=== PATIENT | female | born 1945 | race Caucasian/White ===

== ENCOUNTER → 2017-04-17 | Outpatient (CLI) | payer BC ==
[~2017-04-17] MED LIST: CPR500 PO
--- NOTE | 2017-04-17 15:48 | MAMMOGRAPHY REPORT ---
BILATERAL DIGITAL SCREENING MAMMOGRAM TOMOSYNTHESIS WITH CAD: 04/17/2017 CLINICAL HISTORY: Asymptomatic. Personal history of breast cancer. TECHNIQUE: Breast tomosynthesis in addition to standard 2D mammography was performed. Current study was also evaluated with a Computer Aided Detection (CAD) system. COMPARISON: Comparison is made to exams dated: 04/21/2016 mammogram, 04/18/2015 mammogram, 04/17/2014 m ammogram, 04/06/2013 mammogram, 04/05/2012 mammogram, and 01/21/2011 mammogram - [facility] enter. BREAST COMPOSITION: The tissue of both breasts is almost entirely fatty. FINDINGS: No suspicious masses, calcifications, or areas of architectural distortion are noted in ei ther breast. There has been no significant interval change compared to prior exams. There are stable postsurgical changes in the left breast from prior lumpectomy. Focal asymmetry in the right upper o uter quadrant is stable. IMPRESSION: ACR BI-RADS CATEGORY 2: BENIGN There is no mammographic evidence of malignancy. A 1 year screening mammogram is recommended. The pa tient will receive written notification of the results. Approximately 10% of breast cancers are not detected with mammography. A negative mammographic report should not delay biopsy if a clinically suggestive mass is present. Radha Askew M.D. ah/:04/17/2017 14:52:35 Immunology Specialist: Charlee LANG(Emmett)(M), [facility] letter sent: Normal 1/2 BI-RADS Code: ACR BI-RADS Category 2: Benign
== END | disposition home or self-care (01) ==
LOC: C.MAMM 11:50
PROVIDERS: ATTEND Internal Medicine
DX: Z12.31 Encounter for screening mammogram for malignant neoplasm of breast (principal); Z85.3 Personal history of malignant neoplasm of breast

== ENCOUNTER → 2017-09-03 | Outpatient (CLI) | payer BC ==
--- NOTE | 2017-09-03 16:57 | DIAGNOSTIC IMAGING REPORT ---
RIGHT KNEE 4 VIEWS; LEFT KNEE 4 VIEWS CLINICAL HISTORY: Chronic bilateral knee pain. FINDINGS: An AP standing view of both knees, a tunnel view of both knees, a sunrise view of both knees, with lateral views of the right and left knee are compared to study dated 06/17/2010. The skeletal structures are osteopenic. No fracture is seen. Right knee: There is advanced narrowing at the patellofemoral articulation. Mild narrowing is seen in the medial and lateral compartments. No osteochondral defect is identified on the tunnel view. There are marginal osteophytes as well as patellar enthesophytes. No joint effusion is identified. The overlying soft tissues are within normal limits. Atherosclerotic calcification is noted in the popliteal artery. Left knee: There is advanced narrowing in the medial and patellofemoral compartments. Bony sclerosis is noted in the medial compartment. Only mild narrowing is seen in the lateral compartment. No osteochondral defect is identified on the tunnel view. There are marginal osteophytes as well as patellar enthesophytes. No joint effusion is identified. The overlying soft tissues are within normal limits. Atherosclerotic calcification is noted in the pelvis artery. IMPRESSION: 1. No acute bony abnormality is seen in either knee. 2. Osteopenia and arthritic change as above. This has progressed from the 2009 examination. Electronically signed by: Len Reece M.D. 09/03/2017 4:56 PM Dictated Date/Time: 09/03/2017 4:53 PM
== END | disposition home or self-care (01) ==
LOC: C.RDSM 08:00
PROVIDERS: ATTEND Physician Assistant
DX: R52 Pain, unspecified (principal); M85.89 Other specified disorders of bone density and structure, multiple sites; M17.0 Bilateral primary osteoarthritis of knee

== ENCOUNTER 2019-04-05 06:25 | Inpatient (IN) ==
--- NOTE | 2019-03-21 12:29 | PAT Medication Instructions ---
Medication Instructions Date of Service March 21, 2019 Home Medications aspirin 81 mg PO QAM atorvastatin [Lipitor] 5 mg PO QAM calcium carbonate-vitamin D3 [Calcium 500 + D] 1 tab PO QAM multivitamin 1 cap PO QAM DO NOT take the morning of surgery aspirin 81 mg PO QAM calcium carbonate-vitamin D3 [Calcium 500 + D] 1 tab PO QAM multivitamin 1 cap PO QAM Take morning of surgery With a small sip of water, OTHERWISE NOTHING TO EAT OR DRINK AFTER MIDNIGHT: atorvastatin [Lipitor] 5 mg PO QAM Other Notes If you have any questions please call us at [phone] or [phone] or [phone] or [phone]
--- NOTE | 2019-03-21 13:26 | Anesthesiology Consultation ---
Date of Service March 21, 2019 Assessment & Plan (1) Encounter for pre-operative examination: - No previous anesthesia records re: intubations. Chart Review Chart Review: Acceptable Risk for Surgery and Patient seen in Pre Admission Testing Consults Requested none Teaching & Discussion Pre-Anesthesia Teaching/Discussion Notes: Instructed NPO after midnight before surgery, except medications with 15 cc of water. Medication instructions provided according to the PAT guidelines. History Surgery Operation Date: 04/05/19 08:50 Proposed Procedures p Left Total Knee Arthroplasty - Sai Poe MD Height/Weight Height: 4 ft 11.5 in Weight: 71.9 kg Allergies Allergy/AdvReac Type Severity Reaction Status Date / Time No Known Allergies Allergy Unknown Verified 03/14/19 08:06 Medications Home Medications Medication Instructions Recorded Confirmed Last Taken aspirin 81 mg PO QAM 03/14/19 03/14/19 Unknown atorvastatin [Lipitor] 5 mg PO QAM 03/14/19 03/14/19 Unknown calcium carbonate-vitamin D3 1 tab PO QAM 03/14/19 03/14/19 Unknown [Calcium 500 + D] multivitamin 1 cap PO QAM 03/14/19 03/14/19 Unknown Past Medical History Medical History Breast cancer (Chronic) LEFT - LUMPECTOMY AND SENTINEL NODE BX Hyperlipidemia BORDERLINE Osteoarthritis Exercise / Class Metabolic Activity II 4-5 Yardwork/Stairs/Walk up hill (Tries to do 30+ minutes of activity per day (walking, stationary bike, sunshine, strength training, etc). Able to climb FOS. Denies CP or SOB. ) Past Surgical History Surgical History S/P tubal ligation (Chronic) History of partial mastectomy of left breast (Chronic) "1999, with L axillary sentinal lymph node biopsy" H/O sigmoidoscopy (Chronic) "200- 6 mm tubular adenoma" H/O colonoscopy (Chronic) "2002- 2 hyperplastic polyps 2009-diverticulosis 2014- diverticulosis" History of cataract surgery (Chronic) RIGHT AND LEFT History of carpal tunnel release RIGHT AND LEFT History of open reduction and internal fixation (ORIF) procedure RIGHT WRIST Hx of arthroscopic knee surgery RIGHT AND LEFT Past Anesthesia History No Hx of Anesthesia Complications and No Family Hx of Anesthesia Complications History of PONV No Hx of PONV and No Hx of Motion Sickness Social History Smoking Status: Never smoker Do You Dip or Chew Tobacco: No Hx Alcohol Use: No Hx Substance Use: No substance use type: does not use Review of Systems Patient denies chest pain, shortness of breath, dyspnea on exertion, reflux, cough, wheezing, palpitations. +Joint Pain (Knees) Physical Exam Vital Signs BP: 107/74 P: 69 R: 14 T: 98.2 SPO2: 96% on RA ENMT Thyromental Distance: > or= 3.5 Finger Breadths (3.5) Mallampati Class: II Neck normal visual inspection; neck extension not limited Respiratory normal respiratory effort Auscultation: lungs clear to auscultation bilaterally Cardiovascular Rate/Rhythm: regular rate and regular rhythm Heart Sounds: no murmur Vessels: no carotid bruit Neurologic moves all extremities Psychiatric Orientation: alert and oriented x 3 Testing Laboratory Results 03/21/19 13:35 03/21/19 13:35 PT 9.8 Seconds (9.0-12.0) 03/21/19 13:35 INR 1.0 (0.9-1.1) 03/21/19 13:35 APTT 24.5 Seconds (21.0-31.0) 03/21/19 13:35 Blood Type A Positive 03/21/19 13:35 Antibody Screen NEGATIVE 03/21/19 13:35 Electrocardiogram Date: 12/13/18 Findings: + NSR @ (72) Sinus Arrhythmia Chest X-Ray Date: 03/21/19 Findings: + NAD FINDINGS: Low lung volumes. No focal lung consolidations to suggest pneumonia. No evidence for pulmonary edema. Prominence of the cardiac silhouette may be accentuated by the low lung volumes. Old compression deformity at T12. No pleural effusions. No pneumothorax.
--- NOTE | 2019-03-21 14:02 | XRay Report ---
XR chest Pre-admission PA/Lat HISTORY: Preop. COMPARISON: Chest 03/27/2016. FINDINGS: Low lung volumes. No focal lung consolidations to suggest pneumonia. No evidence for pulmon fabio edema. Prominence of the cardiac silhouette may be accentuated by the low lung volumes. Old compr ession deformity at T12. No pleural effusions. No pneumothorax. IMPRESSION: No acute process. Electronically signed by: Kyree Patel M.D. 03/21/2019 2:00 PM
[2019-03-21 15:24] LABS: Basophils # (auto) 0.03 K/uL (0-0.2); Basophils % (auto) 0.6 %; Eosinophils # (auto) 0.14 K/uL (0-0.5); Eosinophils % (auto) 2.9 %; Hematocrit (blood only) 40.1 % (37-47); Hemoglobin 13.5 g/dL (12.0-16.0); Lymphocytes # (auto) 1.17 K/uL (1.2-3.4); Mean Corpuscular Hemoglobin 30.3 pg (25-34); Mean Corpuscular Hgb Conc 33.7 g/dL (32-36); Mean Corpuscular Volume 90.1 fL (80-100); Mean Platelet Volume 10.2 fL (7.4-10.4); Monocytes # (auto) 0.46 K/uL (0.11-0.59); Monocytes % (auto) 9.4 %; Neutrophils # (auto) 3.08 K/uL (1.4-6.5); Neutrophils % (auto) 63.1 %; Platelet Count 264 K/uL (130-400); RDW Coefficient of Variation 14.5 % (11.5-14.5); RDW Standard Deviation 47.5 fL (36.4-46.3); Red Blood Count 4.45 M/uL (4.2-5.4); White Blood Count 4.88 K/uL (4.8-10.8)
[2019-03-21 15:35] LABS: Partial Thromboplastin Ratio 0.9; Partial Thromboplastin Time 24.5 Seconds (21.0-31.0); Prothrombin Time 9.8 Seconds (9.0-12.0)
[2019-03-21 15:41] LABS: BUN Creatinine Ratio 19.2 (10-20); Creatinine Clr Calc Pharmacy 76.6 ml/min; Est GFR (African American) 106.7; Est GFR (Non-African American) 92.1; Potassium 4.3 mmol/L (3.5-5.1)
--- NOTE | 2019-03-31 17:54 | History and Physical Report ---
DATE OF ADMISSION: 04/05/2019 CHIEF COMPLAINT: Left knee pain and discomfort. HISTORY OF PRESENT ILLNESS: A 74-year-old female who presents for surgical treatment of her left knee. She has a several year history of increasing left knee pain and discomfort that has gotten worse over time. No history of injury. The more she walks, the more it hurts. She has difficulty going up and down stairs. She like to dance, but cannot do so due to her knee pain. She describes global pain. She had viscosupplementation, which did not help at all. She has had steroid shots which have helped only temporarily. She elected to proceed with surgical treatment. Of note, she did have her knee scoped by Dr. Fonseca 30 years ago. PAST MEDICAL HISTORY: Breast cancer. PAST SURGICAL HISTORY: 1. Carpal tunnel release. 2. Lumpectomy. 3. Left knee arthroscopy done by Dr. Fonseca 30+ years ago. ALLERGIES: None. CURRENT MEDICATIONS: 1. Lipitor. 2. Multivitamin. 3. Calcium with vitamin D. SOCIAL HISTORY: A 74-year-old female. She is . Quite active. Does not drink. Does not smoke. FAMILY HISTORY: Significant for heart disease, diabetes, uterine cancer and melanoma. REVIEW OF HISTORY: Negative for diabetes, neurologic problems, vascular problems or bleeding disorders. No chest pain or shortness of breath. No signs of DVT or PE. No known bleeding problems. PHYSICAL EXAMINATION: GENERAL: Reveals a healthy, pleasant middle-aged female. Looks to be in pretty good health. HEENT: Benign. NECK: Supple, no lymphadenopathy. LUNGS: Clear to auscultation. HEART: Regular rate and rhythm. ABDOMEN: Soft, nontender, nondistended. EXTREMITIES: Grossly neurovascularly intact except as follows: Examination of the left knee reveals patient walks with a varus alignment to her knee. She does have a little bit of varus thrust with weightbearing. She has bony hypertrophy medially. She is tender over the medial joint line. Range of motion is 5-120. No instability. No pain with hip motion. X-RAYS: Left knee reviewed. Shows advanced left knee medial compartment DJD. She has complete loss of her medial joint space on the 45-degree flexion films. She had osteophytes in all 3 compartments. ASSESSMENT: A 74-year-old female with a history of a remote knee arthroscopy 30+ years ago with a left knee degenerative joint disease. She would like to proceed with definitive treatment/knee replacement. PLAN: We are going to proceed with left knee replacement. The risks and benefits of this procedure were explained to the patient including but not limited to DVT, PE, , infection, neurological injury, vascular injury, bleeding problem, pain, limited range of motion, stiffness, failure to relieve symptoms, incomplete relief of symptoms, need for further surgery in future, persistent pain, etc. The patient understands and desires to proceed. Informed consent was obtained. As far as discharge plans, she is planning to be discharged home using [facility] home health program.
[~2019-04-05 06:25] MED LIST changes: +ACETAMINOPHEN 500 MG TAB PO SCH; +BUPIVACAINE LIPOSOME/PF 266 MG, BUPIVACAINE/EPINEPHRINE 50 ML, SODIUM CHLORIDE 0.9% 30 ... INFIL SCH; +CEFAZOLIN 2000MG 2,000 MG/15 ML SYR IV SCH; -CPR500 PO; +FAMOTIDINE 20 MG TAB PO SCH; +GABAPENTIN 300 MG CAP PO SCH; +LR 500ML BOLUS, THEN 15ML/HR IV SCH; +LR 60ML/HR IV SCH; +METOCLOPRAMIDE HCL 10 MG TABLET PO SCH
[2019-04-05] MEDS ORDERED: TRANEXAMIC ACID 1,000 MG **IV Intra-op IV SCH (06:30)
[2019-04-05] MEDS ORDERED: BUPIVACAINE/EPINEPHRINE 0.25% 1:200,000 30 ML VIAL ONE (06:36)
[2019-04-05] MEDS ORDERED: BUPIVACAINE 0.5 % 5 MG/1 ML PF 10ML VIAL ONE (06:36)
[2019-04-05] MEDS ORDERED: DEXAMETHASONE SOD INJ 4 MG/ML VIAL ONE (06:36)
--- NOTE | 2019-04-05 06:49 | History & Physical Bridge Note ---
Date of Service April 05, 2019 History & Physical Bridge Note I have examined the patient, reviewed the History & Physical and in the interval since the performance of the History & Physical I have noted the following changes of clinical significance: no changes noted
[2019-04-05] MEDS ORDERED: PROPOFOL IV EMULSION 10 MG/ML 20 ML VIAL IV ONE (07:59)
[2019-04-05] MEDS ORDERED: MIDAZOLAM HCL 1 MG/ML 2ML VIAL ONE (07:59)
[2019-04-05] MEDS ORDERED: fentaNYL citrate 100 MCG/2 ML VIAL ONE (07:59)
[2019-04-05] MEDS ORDERED: BACITRACIN INJ 50,000 UNIT VIAL ONE (09:11)
[2019-04-05] MEDS ORDERED: SODIUM CHLORIDE 0.9% PF 50 ML VIAL ONE (09:11)
[2019-04-05] MEDS ORDERED: BUPIVACAINE LIPOSOME 1.3% 266 MG/20 ML VIAL ONE (09:11)
[2019-04-05] MEDS ORDERED: EPINEPHrine INJ 1 MG/ML AMP ONE (09:12)
[2019-04-05] MEDS ORDERED: BUPIVACAINE 0.25% 30 ML VIAL ONE (09:12)
--- NOTE | 2019-04-05 11:08 | Post Operative Brief Note ---
PG Immediate Post Op with CF Date of Surgery April 05, 2019 Pre & Post Diagnosis Operation Date: 04/05/19 08:50 Pre-Op Diagnosis: Left Knee Advanced Degenerative Joint Disease Post-Op Diagnosis: Left Knee Advanced Degenerative Joint Disease Procedure Operation Date: 04/05/19 08:50 Actual Procedures p Left Total Knee Arthroplasty(Left) - Sai Poe MD Surgeon Sai Poe MD Dry Clipper Tender Rosy, PAC Estimated Blood Loss 50 Findings Consistent with Post-Op Diagnosis Fluids 1000 cc Specimens Specimen Description: A. Left Knee Bone and Tissue Drains Bullard Catheter (A 16 Kazakh bullard catheter was inserted by MEGHNA Spears, without difficulty, clear yellow urine obtained, output to be monitored by Anesthesia.) Anesthesia Type Spinal MAC Complications none Disposition Accompanied Patient To Recovery: No Disposition: Recovery Room
--- NOTE | 2019-04-05 11:30 | Anesthesiology Progress Note ---
Date of Service April 05, 2019 Anesthesia Post Procedure Vital Signs Vital Signs: Temp Pulse Pulse Resp BP BP Pulse Ox 04/05/19 11:20 89 19 109/64 95 04/05/19 11:14 36.7 C 87 17 114/75 100 04/05/19 07:02 36.8 C 81 20 146/85 H 96 Pain Intensity Left Knee: Pain Intensity: 0 Transfer of Care Handoff Completed per policy Notes Mental Status: alert / awake / arousable Patient Amnestic to Procedure: Yes Nausea / Vomiting: adequately controlled Pain: adequately controlled Airway Patency, RR, SpO2: stable & adequate BP & HR: stable & adequate Hydration State: stable & adequate Neuraxial Anesthesia: was administered and sensory block is resolving Anesthetic Complications: no major complications apparent
--- NOTE | 2019-04-05 11:44 | XRay Report ---
XR knee LT 2V routine CLINICAL HISTORY: 74 years-old Female presenting with Surgical Post Op. TECHNIQUE: Frontal and crosstable lateral views of the left knee were obtained. COMPARISON: 02/24/2019. FINDINGS: There has been interval total left knee arthroplasty with patellar resurfacing. Expected intra-articu lar and soft tissue emphysema. No malalignment. No periprosthetic fracture or lucency. Overlying skin asim noted. IMPRESSION: Expected postsurgical appearance status post total left knee arthroplasty with patellar resurfacing. Electronically signed by: Jose Manuel Macdonald M.D. 04/05/2019 11:43 AM
[2019-04-05] MEDS ORDERED: MAGNESIUM HYDROXIDE SUSP 30 ML UDC PO PRN (11:58)
[2019-04-05] MEDS ORDERED: ALUMINUM/MAGNESIUM SUSP 30 ML UDC PO PRN (11:58)
[2019-04-05] MEDS ORDERED: METOCLOPRAMIDE HCL INJ 5 MG/ML 2 ML VIAL IV PRN (11:58)
[2019-04-05] MEDS ORDERED: HYDROmorphone INJ 0.5 MG/0.5 ML SYR IV PRN (11:58)
[2019-04-05] MEDS ORDERED: ONDANSETRON INJ 2 MG/ML 2 ML VIAL IV PRN (11:58)
[2019-04-05] MEDS ORDERED: NALOXONE HCL 0.4 MG/1 ML VIAL/CARP IV PRN (11:58)
[2019-04-05] MEDS ORDERED: BISACODYL 10 MG SUPP PR PRN (11:58)
[2019-04-05] MEDS ORDERED: SODIUM CHLORIDE 0.9% 1000ML 1,000 ML IV SCH (12:45)
[2019-04-05] MEDS: KETOROLAC TROMETHAMINE 15 MG/ML VIAL IV SCH ×3 (13:35→23:12)
--- NOTE | 2019-04-05 13:48 | Progress Note ---
DATE: 04/05/2019 SUBJECTIVE: A 74-year-old white female postop from a left knee replacement. She is doing well. Not having any pain yet. No chest pain or shortness of breath. Not feeling dizzy or lightheaded. OBJECTIVE: VITAL SIGNS: Temperature 36.8. Vital signs stable. GENERAL: Shows a pleasant, middle-aged female. She is sitting up in bed and looks comfortable. LUNGS: Clear to auscultation. HEART: Regular rate and rhythm. ABDOMEN: Soft, nontender, nondistended. EXTREMITIES: Grossly neurovascularly intact except as follows: Examination of the left lower extremity reveals the leg to be well aligned. Dressing is clean, dry and intact. She can dorsiflex and plantarflex her foot appropriately. She is neurologically intact. X-RAYS: X-rays of the left knee were reviewed from the recovery room. It shows a left cemented posterior stabilized total knee arthroplasty. It is a somewhat rotated film. No signs of any problems. ASSESSMENT: A 74-year-old white female postoperative from a left knee replacement, doing well. Pain is controlled. She is neurologically intact. PLAN: 1. DVT prophylaxis including thigh-high TEDs, SCDs, and aspirin twice a day. 2. PT/OT. Weight bear as tolerated. Left total knee protocol. 3. Pain control, doing well with current pain regimen. 4. IV antibiotics x24 hours. 5. Disposition: She is planning to be discharged to home with some home health once adequately recovered and medically stable.
[2019-04-05] MEDS: TRAMADOL HCL 50 MG TABLET PO PRN (14:42)
[2019-04-05] MEDS: ACETAMINOPHEN 500 MG TAB PO SCH ×2 (15:14→23:11)
--- NOTE | 2019-04-05 16:20 | Operative Report ---
DATE OF OPERATION: 04/05/2019 SURGEON: Sai Poe MD. WARD HELPER: MEGHNA Norton. PREOPERATIVE DIAGNOSIS: Left knee degenerative joint disease. POSTOPERATIVE DIAGNOSIS: Left knee degenerative joint disease. PROCEDURE PERFORMED: Left cemented posterior stabilized total knee arthroplasty. COMPLICATIONS: None. ESTIMATED BLOOD LOSS: 50 mL. FLUID REPLACEMENT: 1000 mL crystalloid fluid replacement. ANESTHESIA: Spinal with adductor canal block. DRAINS: None. SPECIMENS: Left knee sent for pathology. TOURNIQUET TIME: 52 minutes at 300 mmHg. OPERATIVE INDICATIONS: The patient is a 74-year-old female who has a long history of left knee pain and discomfort. She had a left knee scope done by Dr. Fonseca over 30 years ago. Over the past several years, she has developed increased pain, discomfort and inability to do certain activities due to her knee pain and discomfort. She has been through extensive conservative treatment, which provided only temporary relief. She elected for total knee arthroplasty. OPERATIVE FINDINGS: Operative findings revealed advanced left knee DJD. She had grade 4 [id number] disease of the medial femoral condyle and medial tibial plateau as well as the patellofemoral joint. She had a varus deformity to her knee. Moderate-sized knee effusion. OPERATIVE IMPLANTS: Operative implants consisted of, 1. Biomet Vanguard size 62.5 left posterior stabilized femoral component. 2. Biomet size 63 tibial tray. 3. A 10 mm posterior stabilized polyethylene insert. 4. A 28 x 8 all poly patella. OPERATIVE PROCEDURE: The patient was taken to the Operating Room, identified and placed on the operating table in supine position. All contact areas were appropriately padded. IV antibiotics were provided by Anesthesia team. Spinal anesthetic and adductor canal block had been provided in the holding area. Pozo catheter was placed in sterile fashion. A left thigh tourniquet was then placed and left lower extremity was then prepped and draped in usual sterile fashion. Left leg was elevated and exsanguinated with an Esmarch and tourniquet was placed at 300 mmHg. An anterior approach to the left knee was then performed through a longitudinal incision centered over the patella. Sharp dissection was carried through subcutaneous tissues down to the level of the extensor mechanism. Medial parapatellar arthrotomy incision was made. Some subperiosteal dissection was carried out medially. The fat pad resected from beneath the patellar tendon. The lateral patellofemoral ligament was released. The patella was everted and knee was flexed. The osteophytes were taken off the distal femur. The ACL and PCL were then released from the distal femur and the tibia subluxated anteriorly. External tibial alignment jig was then placed in the anterior face of the tibia and adjusted 14 mm medially. Proximal tibial cut was made to remove about a millimeter of bone from the most deficient aspect of the medial tibial plateau. Some osteophytes were taken off medial and posteromedially. Tibia was sized to a size 63. Attention was then drawn to the femur. The distal femur was entered with a sharp drill bit. Intramedullary canal was suctioned. A left 5 degree valgus cutting guide was then placed. Distal femoral cutting block was pinned in place. Distal femoral cut was made to take an additional 3 mm of bone off the distal femur. Femur was then sized to a size 62.5. We did downsize this slightly. The AP cutting block was pinned parallel to the epicondylar axis, which was 5 degrees of external rotation. The anterior cut, anterior chamfer cut, posterior cut, posterior chamfer cuts were made. Box cutting guide was placed and adjusted slightly lateral and the box cut was made. The knee was flexed. The remnants of the medial and lateral menisci were excised. The osteophytes were taken off posterior aspect of the femur. A trial femoral component was placed. Tibial tray was pinned in maximum external rotation and the drill and stem punch were used to create defect in proximal tibia for the tibial tray. The knee was then trialed and the 10 mm insert fit most appropriately. Attention was then drawn to the patella. The patella was cleaned of all soft tissues. Patella thickness measured 21 mm in thickness, it was cut down to 13. It was sized to a size 28 patella. Lug holes were drilled for a 28 patella. Lateral osteophyte was removed. Patella button was placed. Knee was taken through range of motion. Patella tracked nicely with no thumbs test. Attention was then drawn toward placing the permanent components. All trial components were removed. Bone plug was placed in the distal femur to limit blood loss. A double batch of Palacos G cement was mixed. A Biomet Vanguard size 62.5 left posterior stabilized femoral component, size 63 tibial tray, a 10 mm posterior stabilized polyethylene insert, a 28 x 8 all poly patella then cemented in place. Knee was brought in full extension until cement hardened. A final cement check was then performed. Pericapsular tissues were injected with a total of 100 mL of a combination with 20 mL of Exparel, 30 mL of normal saline, 50 mL of 0.25% Marcaine with epinephrine. The patient did receive 1 g of tranexamic acid. The tourniquet was then let down for a tourniquet time of 52 minutes. Hemostasis was assured with use of electrocautery. The wound was once again irrigated. Extensor mechanism was then closed with combination of 1 PDS suture, #1 Vicryl suture in [id number] fashion. Extensor mechanism was checked and found to be intact. The subcutaneous tissue was then closed with 2 Dexon suture in a buried interrupted fashion. Skin was closed with skin asim. Leg was then cleaned, dried and a sterile dressing of Xeroform, 4 x 4, sterile cast padding, Lester bandage were then applied. The patient then transferred to the Recovery Room in stable condition. The patient tolerated the procedure well with no complications. All needle and sponge counts were correct at the end of the operation. I attest to the content of the Intraoperative Record and any orders documented therein. Any exception s are noted below.
[2019-04-05] MEDS: ASCORBIC ACID 500 MG TAB PO SCH (17:20)
[2019-04-05] MEDS: FERROUS GLUCONATE 324 MG TAB PO SCH (17:26)
[2019-04-05] MEDS ORDERED: TRANEXAMIC ACID 1,000 MG in 0.9 % SODIUM CHLORIDE 100 ML IV ONE (18:00)
[2019-04-05] MEDS: CEFAZOLIN 1000MG 1,000 MG/7.5 ML SYR IV SCH (20:21)
[2019-04-05] MEDS: DOCUSATE SODIUM 100 MG CAP PO SCH (20:22)
[2019-04-05] MEDS: SENNA 8.6 MG TAB PO SCH (20:22)
[2019-04-05] MEDS: ASPIRIN 81 MG ECTAB PO SCH (20:22)
[2019-04-06] MEDS: CEFAZOLIN 1000MG 1,000 MG/7.5 ML SYR IV SCH (04:01)
[2019-04-06] MEDS: KETOROLAC TROMETHAMINE 15 MG/ML VIAL IV SCH ×4 (06:01→23:17)
[2019-04-06 06:37] LABS: Hematocrit (blood only) 33.7 % (37-47); Mean Corpuscular Hemoglobin 29.5 pg (25-34); Mean Corpuscular Hgb Conc 32.6 g/dL (32-36); Mean Corpuscular Volume 90.3 fL (80-100); Mean Platelet Volume 9.7 fL (7.4-10.4); Platelet Count 224 K/uL (130-400); RDW Coefficient of Variation 14.2 % (11.5-14.5); RDW Standard Deviation 46.9 fL (36.4-46.3); Red Blood Count 3.73 M/uL (4.2-5.4); White Blood Count 9.46 K/uL (4.8-10.8)
[2019-04-06 07:07] LABS: BUN Creatinine Ratio 16.2 (10-20); Calcium 7.9 mg/dl (8.5-10.1); Creatinine Clr Calc Pharmacy 76.6 ml/min; Est GFR (African American) 106.7; Est GFR (Non-African American) 92.1; Potassium 3.9 mmol/L (3.5-5.1)
[2019-04-06] MEDS: FERROUS GLUCONATE 324 MG TAB PO SCH ×2 (08:14→18:20)
[2019-04-06] MEDS: CALCIUM 600MG + VIT D 400 IU TAB PO SCH (08:14)
[2019-04-06] MEDS: ASPIRIN 81 MG ECTAB PO SCH ×2 (08:14→20:21)
[2019-04-06] MEDS: ASCORBIC ACID 500 MG TAB PO SCH ×2 (08:14→18:20)
[2019-04-06] MEDS: DOCUSATE SODIUM 100 MG CAP PO SCH ×2 (08:14→20:35)
[2019-04-06] MEDS: ACETAMINOPHEN 500 MG TAB PO SCH ×3 (08:14→23:16)
[2019-04-06] MEDS: ATORVASTATIN 10 MG TAB PO SCH (08:15)
[2019-04-06] MEDS: MULTIVITAMIN TAB PO SCH (08:15)
[2019-04-06] MEDS ORDERED: MULTIVITAMIN TAB PO SCH (09:00)
--- NOTE | 2019-04-06 11:22 | Progress Note ---
DATE: 04/06/2019 SUBJECTIVE: A 74-year-old white female postop day 1 from left knee replacement. She is doing quite well. Pain has been controlled. No chest pain or shortness of breath. Not feeling dizzy or lightheaded. OBJECTIVE: VITAL SIGNS: Temperature 37.0. Vital signs stable. GENERAL: Physical examination shows a pleasant, middle-aged female. She is sitting up in her bedside chair and looks pretty comfortable. EXTREMITIES: Examination of the left leg reveals the leg to be well aligned. She can dorsiflex and plantarflex her foot appropriately. She is neurologically intact. LABORATORY DATA: Hemoglobin is 11.0. Hematocrit 33.7. Electrolytes are stable. ASSESSMENT: A 74-year-old white female postop day 1 from left knee replacement, doing quite well. Pain is controlled. She is neurologically intact. PLAN: 1. DVT prophylaxis including thigh-high TEDs, SCDs, and aspirin twice a day. 2. PT/OT. Weight bear as tolerated. Left total knee protocol. 3. Pain control, doing well with current pain regimen. 4. Disposition: Plan to discharge to home with home health once adequately recovered and medically stable.
--- NOTE | 2019-04-06 12:15 | Anesthesiology Progress Note ---
Date of Service April 06, 2019 Anesthesia Post Procedure Vital Signs Vital Signs: Temp Pulse Pulse Pulse Resp BP Pulse Ox 04/06/19 07:00 37 C 69 18 135/82 97 04/06/19 03:28 37.0 C 70 16 128/81 97 04/05/19 23:07 36.9 C 65 16 118/76 97 04/05/19 19:00 36.6 C 82 16 123/78 93 04/05/19 15:28 36.4 C L 78 16 126/84 97 04/05/19 14:17 82 16 128/84 96 04/05/19 13:14 36.8 C 84 18 120/66 98 04/05/19 12:20 36.6 C 96 H 16 120/78 93 Pain Intensity Left Knee: Pain Intensity: 0 Notes Mental Status: alert / awake / arousable and participated in evaluation Nausea / Vomiting: adequately controlled Pain: adequately controlled Airway Patency, RR, SpO2: stable & adequate BP & HR: stable & adequate Hydration State: stable & adequate Neuraxial Anesthesia: sensory block resolved
[2019-04-06] MEDS: SENNA 8.6 MG TAB PO SCH (20:35)
[2019-04-06] MEDS: TRAMADOL HCL 50 MG TABLET PO PRN (22:17)
[2019-04-07] MEDS: KETOROLAC TROMETHAMINE 15 MG/ML VIAL IV SCH (04:52)
[2019-04-07] MEDS: TRAMADOL HCL 50 MG TABLET PO PRN (06:16)
--- NOTE | 2019-04-07 07:37 | Progress Note ---
DATE: 04/07/2019 SUBJECTIVE: A 74-year-old white female postop day 2 from a left knee replacement. Had a little bit more pain last night and a little bit more pain this morning. It is manageable. No chest pain or shortness of breath. Not feeling dizzy or lightheaded. OBJECTIVE: VITAL SIGNS: Temperature 36.7. Vital signs stable. GENERAL: Physical examination shows a pleasant, middle-aged female. She is sitting up in bed, looks pretty comfortable. EXTREMITIES: Examination of the left leg reveals the dressing to be clean, dry and intact. Calf is soft and supple. No drainage. She is neurologically intact. ASSESSMENT: A 74-year-old white female postop day 2 from left knee replacement, doing pretty well. Had a little bit more pain today, but still nothing out of the ordinary. PLAN: 1. DVT prophylaxis including thigh-high TEDs, SCDs, and aspirin twice a day. 2. PT/OT. Weight bear as tolerated. Left total knee protocol. 3. Pain control. We will continue current pain regimen. 4. Disposition: Plan to discharge to home with some home health later today.
[2019-04-07] MEDS: ATORVASTATIN 10 MG TAB PO SCH (08:30)
[2019-04-07] MEDS: ASCORBIC ACID 500 MG TAB PO SCH (08:31)
[2019-04-07] MEDS: MULTIVITAMIN TAB PO SCH (08:31)
[2019-04-07] MEDS: FERROUS GLUCONATE 324 MG TAB PO SCH (08:31)
[2019-04-07] MEDS: CALCIUM 600MG + VIT D 400 IU TAB PO SCH (08:31)
[2019-04-07] MEDS: ACETAMINOPHEN 500 MG TAB PO SCH (08:32)
[2019-04-07] MEDS: DOCUSATE SODIUM 100 MG CAP PO SCH (08:32)
[2019-04-07] MEDS: ASPIRIN 81 MG ECTAB PO SCH (11:23)
--- NOTE | 2019-04-13 16:28 | Discharge Summary ---
ADMITTING PHYSICIAN AND SURGEON: Dr. Sai Poe. ADMITTING DIAGNOSIS: Left knee degenerative joint disease. SURGERY PERFORMED: Left total knee arthroplasty. SECONDARY DIAGNOSES: Breast cancer. CONSULTS: None obtained. HISTORY AND PHYSICAL EXAMINATION: Well documented in the patient's chart. HOSPITAL COURSE: The patient was admitted on 04/05/2019 underwent total knee arthroplasty, tolerated the procedure well. There were no complications. She was transferred to the PACU postoperatively and later to the orthopedic floor for further care. She was given Ancef for antibiotic prophylaxis, SARAI stockings, SCDs and aspirin for DVT prophylaxis. Hemoglobin, hematocrit and vital signs were monitored during hospital stay and remained stable. She did not require any blood transfusions. There were no complications. By postoperative day 2 she was tolerating a regular diet, pain was controlled with oral pain medicine. She was participating in physical therapy. Postop day 2, she was discharged home, set up with home health services. She was given printed discharge instructions as well as new prescriptions for extra strength Tylenol, aspirin and tramadol. Continue home medicines. Continue physical therapy, weightbearing as tolerated, SARAI stockings. Follow up approximately 2 weeks postop or sooner if there are any problems or concerns.
== END 2019-04-07 11:59 | disposition home health service (06) | DRG 470 ==
LOC: ASU 06:25 → 3E 11:11